=== PATIENT | female | born 1995 | race Caucasian/White ===

== ENCOUNTER 2017-06-10 15:24 | Observation (INO) | payer OTHER ==
[~2017-06-10] VITALS: Ht 165.1 cm; Wt 99.8 kg
[2017-06-10] MEDS ORDERED: PREN-88 PO (16:10)
[2017-06-10 16:21] LABS: CLARITY URINE CLEAR (CLEAR); COLOR URINE DARK YELLOW (YELLOW); GLUCOSE URINE NEGATIVE (NEGATIVE); KETONES URINE TRACE (NEGATIVE); LEUKOCYTE ESTERASE URINE TRACE (NEGATIVE); NITRITE URINE NEGATIVE (NEGATIVE); OCCULT BLOOD URINE NEGATIVE (NEGATIVE); PROTEIN URINE NEGATIVE (NEGATIVE); SPECIFIC GRAVITY URINE 1.027 (1.005-1.030); UROBILINOGEN URINE 0.2 E.U./dL (0.2-1.0)
== END 2017-06-10 18:20 | disposition home or self-care (01) ==
LOC: L&D 15:24
PROVIDERS: ADMIT Specialist; ATTEND Specialist
DX: O26.892 Other specified pregnancy related conditions, second trimester (principal); R10.9 Unspecified abdominal pain; Z3A.26 26 weeks gestation of pregnancy
CPT/HCPCS: 81001; 99281; G0378

== ENCOUNTER 2017-07-31 22:29 | Observation (INO) | payer OTHER ==
[~2017-07-31 22:29] MED LIST: PREN-88 PO
== END 2017-08-01 00:30 | disposition home or self-care (01) ==
LOC: L&D 22:29
PROVIDERS: ADMIT Obstetrics & Gynecology; ATTEND Obstetrics & Gynecology
DX: O26.893 Other specified pregnancy related conditions, third trimester (principal); M54.9 Dorsalgia, unspecified; Z3A.34 34 weeks gestation of pregnancy
CPT/HCPCS: 99281; G0378

== ENCOUNTER 2021-12-07 23:10 | Emergency (ER) | payer MEDICAID, OTHER ==
[~2021-12-07] VITALS: Ht 167.6 cm; Wt 112.0 kg
[2021-12-07 23:17] VITALS: BP 116/61
[2021-12-07] MEDS ORDERED: CYCLOBENZAPRINE 10MG TABLET PO SCH (23:23)
[2021-12-07] MEDS ORDERED: KETOROLAC 60MG/2ML VIAL IM ONE (23:30)
== END 2021-12-08 02:11 | disposition left against medical advice (07) ==
LOC: ER 23:10
DX: M54.59 Other low back pain (principal)
CPT/HCPCS: 99281